=== PATIENT | female | born 1965 | race Caucasian/White ===

== ENCOUNTER 2020-10-19 07:36 | Outpatient (CLI) | payer OTHER ==
[2020-10-19 16:34] LABS: #Basophils 0.1 10x3/uL (0.0-0.2); #Eosinphils 0.4 10x3/uL (0.0-0.5); #Monocytes 0.7 10x3/uL (0.0-1.1); #Neutrophils 8.1 10x3/uL (1.5-8.4); %Basophils 0.6 % (0.0-2.0); %Eosinophils 2.9 % (0.0-6.0); %Lymphocytes 24.6 % (18.0-47.0); %Monocytes 5.8 % (0.0-10.0); %Neutrophils 65.8 % (40.0-75.0); Mean Corpuscular HGB CONC 33.1 G/DL (32.0-36.0); Mean Corpuscular Volume 93.6 fl (80.0-100.0); Mean Platelet Volume 9.4 fl (7.4-10.4); Platelet Count 315 10x3/uL (130-400); RBC Distribution Width 12.4 % (11.5-14.5); Red Blood Cell (RBC) Count 4.52 10x6/uL (3.90-5.20); White Blood Cell (WBC) Count 12.4 10x3/uL (4.5-11.0)
[2020-10-20 01:57] LABS: SARS-CoV-2 PCR by NAA Not Detected (NotDetected)
== END 2020-10-19 07:37 | disposition home or self-care (01) ==
LOC: LABBT 07:36
PROVIDERS: ATTEND Orthopaedic Surgery Hand Surgery
DX: Z01.812 Encounter for preprocedural laboratory examination (principal); Z20.822 Contact with and (suspected) exposure to COVID-19; G56.01 Carpal tunnel syndrome, right upper limb
CPT/HCPCS: 85025; 87635; U0003; U0005

== ENCOUNTER 2020-10-23 10:57 | Day surgery (SDC) | payer OTHER ==
[2020-10-20 11:13] VITALS: BMI 32.2
[2020-10-23] MEDS ORDERED: Dexamethasone 20 MG/5 ML VIAL ONE (11:03)
[2020-10-23] MEDS ORDERED: Ketorolac Tromethamine 30 MG/ML VIAL ONE (11:03)
[2020-10-23] MEDS ORDERED: PROPOFOL 200 MG/20 ML VIAL ONE (11:03)
[2020-10-23] MEDS ORDERED: Lidocaine 1% PF 5 ML VIAL ONE (11:03)
[2020-10-23] MEDS ORDERED: Ondansetron PF 4 MG/2 ML Vial ONE (11:03)
[2020-10-23] MEDS ORDERED: Bupivacaine PF 0.5% 30 ML VIAL ONE (13:22)
[2020-10-23] MEDS ORDERED: Sodium Chloride 0.9% 10 ML ONE (13:22)
[2020-10-23] MEDS ORDERED: Bacitracin Zinc Ointment 30 gm TUBE ONE (13:22)
[2020-10-23] MEDS ORDERED: Betamet Acet/Betamet Na Ph 30 MG/5 ML VIAL ONE ×2 (13:24→14:37)
[2020-10-23] MEDS ORDERED: Fentanyl 100 MCG/2 ML VIAL ONE (13:31)
--- NOTE | 2020-10-25 10:26 | OP ---
DATE OF PROCEDURE: 10/23/2020 PREOPERATIVE DIAGNOSES: 1. Right carpal tunnel syndrome. 2. Right pronator level median nerve compression. POSTOPERATIVE DIAGNOSES: 1. Right carpal tunnel syndrome. 2. Right pronator level median nerve compression. FINDINGS: Very tight pronator, flexor, arch and lacertus at the pronator tunnel. The pronator side in the forearm of median nerve and at the median nerve at the wrist transcarpal ligament tight with stippling 1 cm area in the central to proximal carpal tunnel. PROCEDURE PERFORMED: 1. Right carpal tunnel release. 2. Right pronator tunnel release with median nerve neuroplasty at the elbow. COMPLICATIONS: None. TOURNIQUET TIME: 44 minutes. ESTIMATED BLOOD LOSS: Less than 10 cc. INJECTION: Celestone 2 cc over the median nerve at the wrist and 3 dripped over the median nerve at the elbow for closure. ANESTHESIA: General LMA. Technique augmented by 30 cc 0.5% Marcaine, 12 given at the carpal tunnel site before injection and 18 given at the pronator incision before injection. DESCRIPTION OF PROCEDURE: After successful general endotracheal anesthesia, the limb was prepped and draped. We outlined a zigzag incision centered over the radial edge of the flexor pronator group beginning 1 cm distal to the volar wrist flexion crease and then coursing for 10 cm distally. We then outlined an incision in line with the ring finger just slightly ulnar to the flexion crease between the thenar-hyperthenar regions. This incision was 2.5 cm long and went from 5 mm distal to the palmar wrist flexion crease to 2 cm distal to the Alonzo cardinal line. We then injected the Marcaine as described above, exsanguinated the limb, began the surgery. First, we did a carpal tunnel release, carried incision through skin and subcutaneous tissue with 11 blade knife until we reached transverse carpal ligament and fascia. We removed all fat from the region, placed a small self-retaining Weitlaner and began our carpal tunnel release. First, we used a [place] blade to open transverse carpal ligament at the level of the palmaris longus from the midportion distally. We released it without violation, admitted the nerve branch to include intact motor branch. We then released it using combination of [place] blade tenotomy scissors, we tunneled it from the midportion distally. Here, we saw the tightest area of compression and stippling over the median nerve of over 1 cm area. No hourglass formation was seen. We then closed this incision. We placed 2 cc Celestone on the nerve before closure was completed using 4-0 nylon interrupted mattress pattern. We then made our incision over the zigzag incision in the pronator area as described above. We carried through skin and subcutaneous tissue, dissected all cutaneous branches, and then dissected below them to spare them. We then identified the interval between the superficial radial nerve and radial artery. Here, we went distal, and at the crossover point, we released the pronator in a superficial head with a step-cut lengthening that was 2 cm long. We now dissected until we saw the median nerve underneath a very thick lacertus lying deep, radial and against the deep radial and volar surface and dorsal surface of the flexor pronator muscles. We released the lacertus which was almost 2 cm long and wide where there was early compression, followed the median nerve until this fascia was attached to the muscle group. From here, we began to free it and noticed the supinator arch and several very tight 2-3 mm fascial bands, which we released. We saw the interosseous nerve now free and opened the supinator arch. We then finished the pronator with another small, this time 15 mm long Z lengthening, and there was no tension whatsoever over the median nerve. The patient then had tourniquet deflated, hemostasis obtained. We closed the proximal incision with a running subcutaneous 4-0 Monocryl, and the skin was reapproximated with interrupted 4-0 nylon in mattress pattern. The patient left the operating room without evidence of anesthetic or operative complication, and a long-arm splint was applied (sugar-tong). In the recovery room, patient had radial, ulnar nerve function and already had decrease in preoperative numbness and tingling. Job ID: [id number]
== END 2020-10-23 17:10 | disposition home or self-care (01) ==
LOC: SDC 10:57
PROVIDERS: ATTEND Orthopaedic Surgery Hand Surgery
PROC: 01N50ZZ Release Median Nerve, Open Approach (ICD-10-PCS; principal; 2020-10-23)
DX: G56.03 Carpal tunnel syndrome, bilateral upper limbs (principal); G56.13 Other lesions of median nerve, bilateral upper limbs; F41.9 Anxiety disorder, unspecified; F32.9 Major depressive disorder, single episode, unspecified; E03.9 Hypothyroidism, unspecified; J44.9 Chronic obstructive pulmonary disease, unspecified; M85.80 Other specified disorders of bone density and structure, unspecified site; Z79.84 Long term (current) use of oral hypoglycemic drugs; Z79.899 Other long term (current) drug therapy; Z87.891 Personal history of nicotine dependence
CPT/HCPCS: J0690; J0702; J1100; J1885; J2405; J2704; J3010; J3490; J7620; S0020

== ENCOUNTER 2021-01-25 10:10 | Outpatient (CLI) | payer OTHER ==
[2021-01-25 12:44] LABS: #Basophils 0.1 10x3/uL (0.0-0.2); #Eosinphils 0.3 10x3/uL (0.0-0.5); #Monocytes 0.5 10x3/uL (0.0-1.1); #Neutrophils 6.2 10x3/uL (1.5-8.4); %Basophils 0.6 % (0.0-2.0); %Eosinophils 2.5 % (0.0-6.0); %Lymphocytes 28.3 % (18.0-47.0); %Monocytes 5.2 % (0.0-10.0); %Neutrophils 62.9 % (40.0-75.0); Hemoglobin 14.7 g/dL (12.0-15.5); Mean Corpuscular HGB CONC 34.2 g/dL (32.0-36.0); Mean Corpuscular Hemoglobin 31.5 pg (27.0-33.0); Mean Corpuscular Volume 92.1 fl (81.6-98.3); Mean Platelet Volume 9.7 fl (7.4-10.4); Platelet Count 295 10x3/uL (150-450); RBC Distribution Width 12.4 % (11.5-14.5); Red Blood Cell (RBC) Count 4.67 10x6/uL (3.90-5.03); White Blood Cell (WBC) Count 9.8 10x3/uL (3.5-10.5)
[2021-01-26 01:47] LABS: SARS-CoV-2 PCR by NAA Not Detected (NotDetected)
== END 2021-01-25 10:11 | disposition home or self-care (01) ==
LOC: LABBT 10:10
PROVIDERS: ATTEND Orthopaedic Surgery Hand Surgery
DX: Z01.812 Encounter for preprocedural laboratory examination (principal); G56.02 Carpal tunnel syndrome, left upper limb; Z20.822 Contact with and (suspected) exposure to COVID-19
CPT/HCPCS: 85025; 87635; U0003; U0005

== ENCOUNTER 2021-01-29 11:48 | Day surgery (SDC) | payer OTHER ==
[2021-01-26 15:17] VITALS: BMI 34.2
[2021-01-29] MEDS ORDERED: Bupivacaine PF 0.5% 30 ML VIAL ONE (12:19)
[2021-01-29] MEDS ORDERED: Betamet Acet/Betamet Na Ph 30 MG/5 ML VIAL ONE (12:19)
[2021-01-29] MEDS ORDERED: Bacitracin Zinc Ointment 30 gm TUBE ONE (12:20)
[2021-01-29] MEDS ORDERED: Midazolam HCl 2 mg/2 ml Vial ONE (13:39)
[2021-01-29] MEDS ORDERED: Lidocaine 1% PF 5 ML VIAL ONE (13:57)
[2021-01-29] MEDS ORDERED: Ondansetron PF 4 MG/2 ML Vial ONE (13:57)
[2021-01-29] MEDS ORDERED: PROPOFOL 200 MG/20 ML VIAL ONE (13:57)
[2021-01-29] MEDS ORDERED: Dexamethasone 20 MG/5 ML VIAL ONE (13:57)
[2021-01-29] MEDS ORDERED: Ketorolac Tromethamine 30 MG/ML VIAL ONE (13:57)
[2021-01-29] MEDS ORDERED: Fentanyl 100 MCG/2 ML VIAL ONE (13:59)
== END 2021-01-29 15:45 | disposition home or self-care (01) ==
LOC: SDC 11:48
PROVIDERS: ATTEND Orthopaedic Surgery Hand Surgery
PROC: 01N50ZZ Release Median Nerve, Open Approach (ICD-10-PCS; principal; 2021-01-29)
DX: G56.02 Carpal tunnel syndrome, left upper limb (principal); Z79.84 Long term (current) use of oral hypoglycemic drugs; Z79.899 Other long term (current) drug therapy
CPT/HCPCS: J0690; J0702; J1100; J1885; J2250; J2405; J2704; J3010; J3490; S0020